=== PATIENT | female | born 1935 | race Caucasian/White ===

== ENCOUNTER 2018-11-04 17:14 | Observation (INO) ==
[2018-11-04] MEDS ORDERED: Sod Chloride 0.9% Inj 1,000 ML IV.SIG ONE (17:33)
--- NOTE | 2018-11-04 17:38 | ED ---
HPI General Chief Complaint: Seizure Stated Complaint: Seizure Time Seen by Provider: 11/04/18 17:24 Source: patient Mode of arrival: ambulatory Limitations: no limitations History of Present Illness HPI Narrative: Patient is a 83-year-old female with history of hypertension and hyperlipidemia, presents to the emergency room for evaluation of seizure. As per EMS, patient's reports that patient had a seizure episode while sitting down, reports that the episode lasted for about 10 minutes. Patient does not have history of seizures. Denies any trauma to the head or neck. Patient reports that she has no headache or dizziness, denies any vision changes. Denies any fever/chills. Patient reports that at this time, she just feels nauseous. Patient with no chest pain or shortness of breath, no other complaints. Patient did have incontinence of stool on route to the ER. EMS reported that patient has been postictal until she arrived to the ER Related Data Home Medications Medication Instructions Recorded Confirmed amlodipine 5 mg PO DAILY 11/04/18 11/04/18 atorvastatin 40 mg PO DAILY 11/04/18 11/04/18 calcium carbonate-vitamin D3 1 tab PO BID 11/04/18 11/04/18 [Calcium with Vitamin D] cetirizine 5 mg PO DAILY 11/04/18 11/04/18 cholecalciferol (vitamin D3) 2,500 unit PO DAILY 11/04/18 11/04/18 [Vitamin D3] dicyclomine 10 mg PO TID 11/04/18 11/04/18 hydrochlorothiazide 12.5 mg PO DAILY 11/04/18 11/04/18 metoprolol succinate 25 mg PO BID 11/04/18 11/04/18 multivitamin 1 tab PO DAILY 11/04/18 11/04/18 pantoprazole 40 mg PO DAILY 11/04/18 11/04/18 tizanidine [Zanaflex] 4 mg PO TID PRN 11/04/18 11/04/18 Allergies Allergy/AdvReac Type Severity Reaction Status Date / Time niacin Allergy Unknown Rash Verified 11/04/18 17:47 Review of Systems ROS: all other systems reviewed are negative PMFSH History History Provided By: Patient Medical History Medical History Hypercholesteremia (Acute) Hypertension (Acute) Social History Social History Substance History: No History of Abuse Smoking Status: Former smoker How Often Do You Have a Drink Containing Alcohol: Never Recent Travel in [place] within the Last 8 Weeks: No Recent Out of Country Travel within the Last 8 Weeks: No Exam Narrative Exam Narrative: GENERAL: Mild distress SKIN: Focused skin assessment warm/dry. HEAD: Atraumatic. Normocephalic. EYES: Pupils equal and round. No scleral icterus. No injection or drainage. ENT: No nasal bleeding or discharge. Mucous membranes pink and moist. NECK: Trachea midline. No JVD. CARDIOVASCULAR: Regular rate and rhythm. No murmur appreciated. RESPIRATORY: No accessory muscle use. Clear to auscultation. Breath sounds equal bilaterally. GASTROINTESTINAL: Abdomen soft, non-tender, nondistended. Hepatic and splenic margins not palpable. MUSCULOSKELETAL: No obvious deformities. No clubbing. No cyanosis. No edema. NEUROLOGICAL: Awake and alert. No obvious cranial nerve deficits. Motor grossly within normal limits. Normal speech. CN 2- 12 grossly intact with no neurological compromise PSYCHIATRIC: Appropriate mood and affect; insight and judgment normal. Course Initial Documented Vital Signs Temperature 97.7 F 11/04/18 17:32 Pulse Rate 77 11/04/18 17:32 Respiratory Rate 18 11/04/18 17:32 Blood Pressure 194/79 H 11/04/18 17:32 Pulse Oximetry 92 L 11/04/18 17:32 Last Documented Vital Signs Temperature 97.7 F 11/04/18 17:32 Pulse Rate 74 11/04/18 17:41 Respiratory Rate 18 11/04/18 17:41 Blood Pressure 153/67 H 11/04/18 17:41 Pulse Oximetry 96 11/04/18 17:41 Medical Decision Making [facility] Narrative Medical decision making narrative: During the course of the patients emergency department visit, the patients history, examination, and differential diagnosis were reviewed with the patient. The patient was placed on a traffic monitor specialist with oximetry and frequent blood pressure monitoring. The patient had an IV access obtained and blood work sent for analysis. The patient was initially provided IVF. CT of head ordered as patient has new onset seizures. The patients laboratory studies were reviewed Case reviewed with Dr. Guillermo who accepts pt to service for workup of new onse seizures Medical Screen Exam Complete: Yes Emergency Medical Condition: Yes Differential Diagnosis Differential Diagnosis: new onset seizure, intracranial mass, ich, electrolyte abnormality Medical Records Medical records reviewed: Yes I reviewed the patient's medical records. Lab Data Result diagrams: 11/04/18 17:38 11/04/18 17:38 Lab Results 11/04/18 11/04/18 11/04/18 Range/Units 17:38 17:38 17:38 WBC 7.7 (4.0-11.0) th/mm3 RBC 4.85 (4.00-5.30) mil/mm3 Hgb 14.2 (11.6-15.3) gm/dL Hct 41.8 (35.0-46.0) % MCV 86.3 (80.0-100.0) fL MCH 29.4 (27.0-34.0) pg MCHC 34.0 (32.0-36.0) % RDW 14.6 (11.6-17.2) % Plt Count 212 (150-450) th/mm3 MPV 8.7 (7.0-11.0) fL Neut % (Auto) 64.7 (16.0-70.0) % Lymph % (Auto) 25.3 (9.0-44.0) % Island % (Auto) 8.6 H (0.0-8.0) % Eos % (Auto) 1.0 (0.0-4.0) % Baso % (Auto) 0.4 (0.0-2.0) % Neut # (Auto) 5.0 (1.8-7.7) th/mm3 Lymph # (Auto) 2.0 (1.0-4.8) th/mm3 Island # (Auto) 0.7 (0.0-0.9) th/mm3 Eos # (Auto) 0.1 (0.0-0.4) th/mm3 Baso # (Auto) 0.0 (0.0-0.2) th/mm3 WBC Differential . Differential Comment Auto diff final Sodium 137 (136-145) meq/L Potassium 3.1 L (3.5-5.1) meq/L Chloride 104 (98-107) meq/L Carbon Dioxide 25.5 (21.0-32.0) meq/L Anion Gap 8 (5-15) meq/L BUN 25 H (7-18) mg/dL Creatinine 1.07 H (0.50-1.00) mg/dL Estimated GFR 49 L (>89) mL/min POC Glucose 131 H (68-110) mg/dl Random Glucose 130 H (74-106) mg/dL Calcium 8.8 (8.5-10.1) mg/dL Magnesium 1.6 (1.5-2.5) mg/dL Imaging Data Radiologist's impression: Head CT 11/04/18 17:33 CONCLUSION: No acute intracranial abnormality. . Discharge Plan Discharge Disposition Patient Disposition: ED Admit(ED Internal Use Only) Discharge Condition Condition: Stable Discharge Order Discharge Orders: ED Use Only Admit Order (Routine); Ordered 11/04/18 Ordered By: Roxi Aleman Discharge Details Diagnosis: New onset seizure Physicians Team ED Provider: Roxi Aleman Primary Care Provider: Xander Solis Rxs /Orders / Referrals /Forms Prescriptions: No Action multivitamin Tablet 1 tab PO DAILY RF: 0 atorvastatin 40 mg Tablet 40 mg PO DAILY RF: 0 cetirizine 5 mg Tablet 5 mg PO DAILY RF: 0 tizanidine [Zanaflex] 4 mg Tablet 4 mg PO TID PRN (Reason: Muscle Spasm) RF: 0 amlodipine 5 mg Tablet 5 mg PO DAILY RF: 0 pantoprazole 40 mg Tablet,Delayed Release (Dr/Ec) 40 mg PO DAILY RF: 0 hydrochlorothiazide 25 mg Tablet 12.5 mg PO DAILY RF: 0 metoprolol succinate 25 mg Tablet Extended Release 24 Hr 25 mg PO BID RF: 0 dicyclomine 10 mg Capsule 10 mg PO TID RF: 0 calcium carbonate-vitamin D3 [Calcium with Vitamin D] 600 mg(1,500mg) -400 unit Tablet 1 tab PO BID RF: 0 cholecalciferol (vitamin D3) [Vitamin D3] 5,000 unit Tablet 2,500 unit PO DAILY RF: 0 Discharge Interventions Interventions: Vital Signs Last Done: 11/04/18 17:41 Status ED Status: Pending Admission
--- NOTE | 2018-11-04 18:02 | CT ---
EXAM DATE: 11/04/2018 5:59 PM EST AGE/SEX: 83 years / Female INDICATIONS: Seizure; patient complains of vertigo now. CLINICAL DATA: This is the patient's initial encounter. Patient reports that signs and symptoms have been present for 1 day and indicates a pain score of 0/10. MEDICAL/SURGICAL HISTORY: Hypertension. None. RADIATION DOSE: 34.23 CTDI (mGy) COMPARISON: No prior exams available for comparison. TECHNIQUE: CT of the head without contrast. Using automated exposure control and adjustment of the mA and/or kV according to patient size, radiation dose was kept as low as reasonably achievable to ob tain optimal diagnostic quality images. DICOM format image data is available electronically for revi ew and comparison. FINDINGS: Cerebrum: The ventricles are normal for age. No evidence of midline shift, mass lesion, hemorrhage or acute infarction. No extraaxial fluid collections are seen. Posterior Fossa: The cerebellum and brainstem are intact. The 4th ventricle is midline. The cerebe llopontine angle is unremarkable. Extracranial: The visualized portion of the orbits is intact. Skull: The calvaria is intact. No evidence of skull fracture. CONCLUSION: No acute intracranial abnormality. . Electronically signed by: Kumar Rowe MD 11/04/2018 6:01 PM EST
[2018-11-04 18:05] LABS: Baso % (Auto) 0.4 % (0.0-2.0); Eos # (Auto) 0.1 th/mm3 (0.0-0.4); Hematocrit 41.8 % (35.0-46.0); Hemoglobin 14.2 gm/dL (11.6-15.3); Lymph % (Auto) 25.3 % (9.0-44.0); Mean Corpuscular Hemoglobin 29.4 pg (27.0-34.0); Mean Corpuscular Volume 86.3 fL (80.0-100.0); Mean Platelet Volume 8.7 fL (7.0-11.0); Mono # (Auto) 0.7 th/mm3 (0.0-0.9); Mono % (Auto) 8.6 % (0.0-8.0); Neut % (Auto) 64.7 % (16.0-70.0); Platelet Count 212 th/mm3 (150-450); Red Blood Count 4.85 mil/mm3 (4.00-5.30); Red Cell Distribution Width 14.6 % (11.6-17.2); White Blood Count 7.7 th/mm3 (4.0-11.0)
[2018-11-04 18:22] LABS: Calcium 8.8 mg/dL (8.5-10.1); Carbon Dioxide 25.5 meq/L (21.0-32.0); Magnesium 1.6 mg/dL (1.5-2.5); Potassium 3.1 meq/L (3.5-5.1)
[2018-11-04] MEDS ORDERED: Bisacodyl 10 MG Supp RECTAL PRN (19:16)
[2018-11-04] MEDS ORDERED: Acetaminophen 325 MG Tablet PO PRN (19:16)
--- NOTE | 2018-11-04 19:18 | P.HPIM ---
History of Present Illness Primary Care Physician: Xander Solis MD History of Present Illness: This is an 83-year-old female with a PMH of HTN and Hyperlipidemia was brought to the ER by EMS after seizure. Per at bedside, heard pt scream from the other room, then found her having mostly upper extremity shaking, episode lasted approx 10min, +fecal incontinence and post-ictal period. Currently back to baseline mental status. No recurrent episodes. Pt w/ h/o febrile seizures when she was 9yrs old, no seizure activity since, not on anticonvulsants. On arrival, BP 153/67, HR 74, O2 sat 96% on 2L NC, Afebrile. CBC unremarkable. K + 3.1. Creatinine 1.07. BUN 25. CT Head with no acute findings. - Diagnosis (1) New onset seizure (2) Hypokalemia (3) Dehydration Review of Systems PAST FAMILY HISTORY: Reviewed. No h/o DM or CAD All other systems reviewed negative except as stated in HPI PMFSH - History History Provided By: Patient - Medical History Medical History: Medical History (Last Reviewed 11/04/18 @ 17:50 by Roxi Moraes RN) Hypercholesteremia Hypertension - Surgical History Surgical History: Surgical History (Last Reviewed 11/04/18 @ 17:50 by Roxi Moraes RN) No history of previous surgery - Tobacco History Smoking Status: Former smoker - Alcohol History How Often Do You Have a Drink Containing Alcohol: Never - Substance Use History Substance History: No History of Abuse - Travel History Recent Travel in the [place] Within the Last 8 Weeks: No Recent Travel Out of the Country Within the Last 8 Weeks: No - Immunization History Tetanus Immunization: Never Vaccinated Medications and Allergies Active Medications: Active Medications Sodium Chloride (Ns Flush) 2 ml IV.FLUSH PRN PRN PRN Reason: FLUSH AFTER USING IV ACCESS Last Admin: 11/04/18 17:49 Dose: 2 ml Allergies Allergy/AdvReac Type Severity Reaction Status Date / Time niacin Allergy Unknown Rash Verified 11/04/18 17:47 Home Medications Medication Instructions Recorded Confirmed Type amlodipine 5 mg PO DAILY 11/04/18 11/04/18 History atorvastatin 40 mg PO DAILY 11/04/18 11/04/18 History calcium carbonate-vitamin D3 1 tab PO BID 11/04/18 11/04/18 History [Calcium with Vitamin D] cetirizine 5 mg PO DAILY 11/04/18 11/04/18 History cholecalciferol (vitamin D3) 2,500 unit PO DAILY 11/04/18 11/04/18 History [Vitamin D3] dicyclomine 10 mg PO TID 11/04/18 11/04/18 History hydrochlorothiazide 12.5 mg PO DAILY 11/04/18 11/04/18 History metoprolol succinate 25 mg PO BID 11/04/18 11/04/18 History multivitamin 1 tab PO DAILY 11/04/18 11/04/18 History pantoprazole 40 mg PO DAILY 11/04/18 11/04/18 History tizanidine [Zanaflex] 4 mg PO TID PRN 11/04/18 11/04/18 History Exam Vital signs: Vital Signs 11/04/18 17:32 11/04/18 17:35 11/04/18 17:37 Temperature 97.7 F Pulse Rate 77 81 Respiratory Rate 18 Blood Pressure 194/79 H Pulse Oximetry 92 L 92 L 96 11/04/18 17:41 Temperature Pulse Rate 74 Respiratory Rate 18 Blood Pressure 153/67 H Pulse Oximetry 96 Intake & Output 11/04/18 11/04/18 11/05/18 06:59 18:59 06:59 Intake Total 1000 / 1000 Balance 1000 / 1000 Weight 160 kg Intake: IV 1000 / 1000 NS Inj 1,000 ML @ Wide Open IV. 1000 / 1000 SIG BOLUS ONE Rx#:[id number] Narrative: PE: GENERAL: Extremely pleasant elderly white female in no acute distress. at bedside. SKIN: Focused skin assessment warm and dry. HEENT: PERRLA, EOMI. No scleral icterus or conjunctival pallor. No lid lag or facial droop. CARDIOVASCULAR: Regular rate and rhythm. No obvious murmurs to auscultation. No chest tenderness to palpation. RESPIRATORY: No obvious rhonchi or wheezing. Clear to auscultation. Breath sounds equal bilaterally. GASTROINTESTINAL: Abdomen soft, non-tender, nondistended. BS normal. MUSCULOSKELETAL: Extremities without clubbing, cyanosis, or edema. No obvious deformities. NEUROLOGICAL: Awake, alert and oriented x4. No focal neurologic deficits. Moving both upper and lower extremities spontaneously. PSYCHIATRIC: Appropriate mood and affect. Insight and judgment normal. Results - Labs CBC & Chem 7: 11/04/18 17:38 11/04/18 17:38 Labs: Short CBC 11/04/18 Range/Units 17:38 WBC 7.7 (4.0-11.0) th/mm3 Hgb 14.2 (11.6-15.3) gm/dL Hct 41.8 (35.0-46.0) % Plt Count 212 (150-450) th/mm3 BMP 11/04/18 17:38 Sodium 137 Potassium 3.1 L Chloride 104 Carbon Dioxide 25.5 BUN 25 H Creatinine 1.07 H Calcium 8.8 - Imaging Impressions Head CT 11/04/18 17:33 CONCLUSION: No acute intracranial abnormality. . Caprini VTE Risk Assessment Caprini VTE Risk Assessment: No/Low Risk (score <= 1) Caprini Risk Assessment Model: Point Value = 1 Point Value = 2 Point Value = 3 Point Value = 5 Age 41-60 Minor surgery BMI > 25 kg/m2 Swollen legs Varicose veins or History of unexplained or recurrent spontaneous Oral contraceptives or hormone replacement Sepsis (< 1 month) Serious lung disease, including pneumonia (< 1 month) Abnormal pulmonary function Acute myocardial infarction Congestive heart failure (< 1 month) History of inflammatory bowel disease Medical patient at bed rest Age 61-74 Arthroscopic surgery Major open surgery (> 45 min) Laparoscopic surgery (> 45 min) Malignancy Confined to bed (> 72 hours) Immobilizing plaster cast Central venous access Age >= 75 History of VTE Family history of VTE Factor V Leiden Prothrombin [id number] Lupus anticoagulant Anticardiolipin antibodies Elevated serum homocysteine Heparin-induced thrombocytopenia Other congenital or acquired thrombophilia Stroke (< 1 month) Elective arthroplasty Hip, pelvis, or leg fracture Acute spinal cord injury (< 1 month) Prophylaxis Regimen: Total Risk Factor Score Risk Level Prophylaxis Regimen 0-1 Low Early ambulation 2 Moderate Order ONE of the following: *Sequential Compression Device (SCD) *Heparin 5000 units SQ BID 3-4 Higher Order ONE of the following medications: *Heparin 5000 units SQ TID *Enoxaparin/Lovenox 40 mg SQ daily (WT < 150 kg, CrCl > 30 mL/min) *Enoxaparin/Lovenox 30 mg SQ daily (WT < 150 kg, CrCl > 10-29 mL/min) *Enoxaparin/Lovenox 30 mg SQ BID (WT < 150 kg, CrCl > 30 mL/min) AND/OR *Sequential Compression Device (SCD) 5 or more Highest Order ONE of the following medications: *Heparin 5000 units SQ TID (Preferred with Epidurals) *Enoxaparin/Lovenox 40 mg SQ daily (WT < 150 kg, CrCl > 30 mL/min) *Enoxaparin/Lovenox 30 mg SQ daily (WT < 150 kg, CrCl > 10-29 mL/min) *Enoxaparin/Lovenox 30 mg SQ BID (WT < 150 kg, CrCl > 30 mL/min) AND *Sequential Compression Device (SCD) Assessment and Plan - Assessment (1) New onset seizure Code(s): R56.9 - Unspecified convulsions Status: Acute (2) Hypokalemia Code(s): E87.6 - Hypokalemia Status: Acute (3) Dehydration Code(s): E86.0 - Dehydration Status: Acute - Plan A/P: 1. Seizure: New Onset. h/o febrile seizure as a child, no recurrence, not on anticonvulsants. +seizure activity x10 min, +fecal incontinence, +post-ictal period, now back to baseline. CT Head w/ no acute findings. Check MRI to eval for possible seizure focus. Check EEG to eval for seizure activity. Seizure Precautions. Ativan prn. Consult Neurology for further recommendations. Pt instructed not to drive, operate machinery, climb ladders or swim for 6mo until seizure free. 2. Dehydration: BUN 25, creatinine 1.07, no previous labs for comparison, IVF for hydration, check U/a to eval for underling UTI, monitor I/O, repeat labs in am 3. Hypokalemia: K+ 3.1, s/p replacement in ER, will recheck in am and replace as needed. 4. DVT Prophylaxis: SCD/Teds 5. Social work for d/c planning as needed. 6. Case discussed w/ ER physician at length, labs/records/imaging reviewed by me.
--- NOTE | 2018-11-04 20:39 | MR ---
EXAM DATE: 11/04/2018 8:34 PM EST AGE/SEX: 83 years / Female INDICATIONS: Seizures. CLINICAL DATA: This is the patient's initial encounter. Patient reports that signs and symptoms have been present for 1 day and indicates a pain score of 0/10. MEDICAL/SURGICAL HISTORY: Hypertension. GERD, Gastric Ulcer, Hiatal Hernia . Cataract COMPARISON: [facility] [place], CT HEAD W/O CONTRAST, 11/04/2018. . TECHNIQUE: Multiplanar, multisequence examination of the brain was performed without contrast. FINDINGS: Cerebrum: The ventricles are normal for age. No evidence of midline shift, mass lesion, hemorrhage or acute infarction. No extraaxial fluid collections are seen. The pituitary gland and suprasellar cistern are normal in configuration. White Matter: Mild, chronic and symmetric FLAIR signal abnormality seen in the bilateral periventric ular white matter. Posterior Fossa: The cerebellum and brainstem are intact. The 4th ventricle is midline. The cerebel lopontine angle is unremarkable. The cerebellar tonsils are normal in position. Diffusion Imaging: No focal areas of restricted diffusion are seen. No evidence of acute infarction . Extracranial: The visualized portions of the orbits and paranasal sinuses are unremarkable. CONCLUSION: 1. No bleed, acute infarct or other acute intracranial abnormality demonstrated. 2. Mild chronic white matter changes. Electronically signed by: Kumar Rowe MD 11/04/2018 8:38 PM EST
[2018-11-04] MEDS: Sod Chloride 0.9% Inj 1,000 ML IV.CONT SCH (21:22)
[2018-11-04] MEDS: Senna/Docusate Sodium 8.6/50 MG Tablet PO SCH (21:24)
[2018-11-04 22:43] LABS: Bacteria,Urine Occasional /hpf; Bilirubin,Urine Negative (Negative); Clarity,Urine Clear (Clear); Color,Urine Straw (Yellw/Straw); Glucose,Urine (UA) Negative (Negative); Leukocyte Esterase,Urine Trace (Negative); Mucus,Urine Few /lpf (Occasional); Nitrite,Urine Negative (Negative); Specific Gravity,Urine 1.008 (1.002-1.035); Squamous Epithelial Cell,Urine 1 /hpf (0-5)
[2018-11-05 06:15] LABS: Baso % (Auto) 0.2 % (0.0-2.0); Eos # (Auto) 0.1 th/mm3 (0.0-0.4); Eos % (Auto) 0.7 % (0.0-4.0); Hematocrit 38.1 % (35.0-46.0); Lymph # (Auto) 1.4 th/mm3 (1.0-4.8); Lymph % (Auto) 17.6 % (9.0-44.0); Mean Corpuscular HGB Conc 34.1 % (32.0-36.0); Mean Corpuscular Hemoglobin 29.5 pg (27.0-34.0); Mean Corpuscular Volume 86.4 fL (80.0-100.0); Mono % (Auto) 11.7 % (0.0-8.0); Neut # (Auto) 5.7 th/mm3 (1.8-7.7); Neut % (Auto) 69.8 % (16.0-70.0); Platelet Count 201 th/mm3 (150-450); Red Blood Count 4.41 mil/mm3 (4.00-5.30); Red Cell Distribution Width 14.5 % (11.6-17.2); White Blood Count 8.1 th/mm3 (4.0-11.0)
[2018-11-05 06:43] LABS: Anion Gap 6 meq/L (5-15); Aspartate Aminotransferase 19 U/L (15-37); Blood Urea Nitrogen 15 mg/dL (7-18); Calcium 8.4 mg/dL (8.5-10.1); Carbon Dioxide 26.6 meq/L (21.0-32.0); Chloride 110 meq/L (98-107); Glomerular Filtration Rate 72 mL/min (>89); Glucose,Random 93 mg/dL (74-106); Potassium 3.2 meq/L (3.5-5.1); Sodium 143 meq/L (136-145)
[2018-11-05 06:44] LABS: Alanine Aminotransferase 19 U/L (10-53)
[2018-11-05 06:46] LABS: Alkaline Phosphatase 54 U/L (45-117); Total Protein 6.8 g/dL (6.4-8.2)
[2018-11-05] MEDS: Sod Chloride 0.9% Inj 1,000 ML IV.CONT SCH (07:08)
[2018-11-05] MEDS ORDERED: Potassium Chlor 20 mEq Premix 20 MEQ/100 ML PIGGYBACK IV.SIG ONE (08:00)
[2018-11-05 08:47] VITALS: PULSE 75; RESP 20
[2018-11-05] MEDS ORDERED: Magnesium Sulfate Inj 2 GM in Sodium Chlor 0.9% Inj 96 ML IV.SIG ONE (09:00)
[2018-11-05] MEDS: Senna/Docusate Sodium 8.6/50 MG Tablet PO SCH (10:00)
--- NOTE | 2018-11-05 12:27 | P.PNIM ---
Subjective Interval history: Follow-up visit HTN, HLD, new onset seizure. Patient seen and examined today. Reports she has been doing well. States no episode of seizures overnight. States that she feels a lot better. States that she spoke with a neurologist earlier and wanted her to get the EEG and if it is normal she is able to go home follow-up in their office. Denies pain and discomfort. Denies SOB/ dyspnea. Denies chest pain, palpitations, headaches, dizziness. Denies fevers, chills, n/v/d. Denies hematuria, dysuria. Physical Exam Vital signs: Vital Signs 11/04/18 17:32 11/04/18 17:35 11/04/18 17:37 Temperature 97.7 F Pulse Rate 77 81 Respiratory Rate 18 Blood Pressure 194/79 H Pulse Oximetry 92 L 92 L 96 11/04/18 17:41 11/04/18 21:02 11/04/18 23:58 Temperature 98.1 F 97.7 F Pulse Rate 74 73 73 Respiratory Rate 18 18 18 Blood Pressure 153/67 H 143/67 H 124/58 L Pulse Oximetry 96 95 97 11/05/18 04:00 11/05/18 08:00 Temperature 98.2 F 98.6 F Pulse Rate 67 75 Respiratory Rate 18 20 Blood Pressure 114/56 L 130/63 Pulse Oximetry 95 98 Intake & Output 11/04/18 11/05/18 11/05/18 18:59 06:59 18:59 Intake Total 1000 / 1000 1000 / 1000 Balance 1000 / 1000 1000 / 1000 Weight 160 kg 82.6 kg Intake: IV 1000 / 1000 1000 / 1000 NS Inj 1,000 ML @ 100 mls/hr IV 1000 / 1000 .CONT .Q10H ODELL Rx#:[id number] NS Inj 1,000 ML @ Wide Open IV. 1000 / 1000 SIG BOLUS ONE Rx#:[id number] Other: # Voids 1 5 Date of Last Bowel Movement 11/04/18 Weight On Admission 82.7 kg Narrative: GENERAL: Extremely pleasant elderly white female in no acute distress. SKIN:Warm and dry. HEENT: PERRLA, EOMI. No scleral icterus or conjunctival pallor. No lid lag or facial droop. CARDIOVASCULAR: Regular rate and rhythm. No obvious murmurs to auscultation. No chest tenderness to palpation. RESPIRATORY: No obvious rhonchi or wheezing. Clear to auscultation. Breath sounds equal bilaterally. GASTROINTESTINAL: Abdomen soft, non-tender, nondistended. BS normal. MUSCULOSKELETAL: Extremities without clubbing, cyanosis, or edema. No obvious deformities. NEUROLOGICAL: Awake, alert and oriented x4. No focal neurologic deficits. Moving both upper and lower extremities spontaneously. PSYCHIATRIC: Appropriate mood and affect. Insight and judgment normal. Results - Labs CBC & Chem 7: 11/05/18 05:03 11/05/18 05:03 Laboratory Results - last 24 hr 11/04/18 11/04/18 11/04/18 17:38 17:38 17:38 WBC 7.7 RBC 4.85 Hgb 14.2 Hct 41.8 MCV 86.3 MCH 29.4 MCHC 34.0 RDW 14.6 Plt Count 212 MPV 8.7 Neut % (Auto) 64.7 Lymph % (Auto) 25.3 Bond % (Auto) 8.6 H Eos % (Auto) 1.0 Baso % (Auto) 0.4 Neut # (Auto) 5.0 Lymph # (Auto) 2.0 Bond # (Auto) 0.7 Eos # (Auto) 0.1 Baso # (Auto) 0.0 WBC Differential . Differential Comment Auto diff final Sodium 137 Potassium 3.1 L Chloride 104 Carbon Dioxide 25.5 Anion Gap 8 BUN 25 H Creatinine 1.07 H Estimated GFR 49 L POC Glucose 131 H Random Glucose 130 H Calcium 8.8 Magnesium 1.6 Total Bilirubin AST ALT Alkaline Phosphatase Total Protein Albumin Urine Color Urine Clarity Urine pH Ur Specific [place] Urine Protein Urine Glucose (UA) Urine Ketones Urine Occult Blood Urine Nitrate Urine Bilirubin Urine Urobilinogen Ur Leukocyte Esterase Urine RBC Urine WBC Ur Squamous Epith Cells Urine Bacteria Urine Mucus Micro UA Comment Ur Microscopic Review Urine Culture Comments 11/04/18 11/05/18 11/05/18 21:50 05:03 05:03 WBC 8.1 RBC 4.41 Hgb 13.0 Hct 38.1 MCV 86.4 MCH 29.5 MCHC 34.1 RDW 14.5 Plt Count 201 MPV 9.0 Neut % (Auto) 69.8 Lymph % (Auto) 17.6 Bond % (Auto) 11.7 H Eos % (Auto) 0.7 Baso % (Auto) 0.2 Neut # (Auto) 5.7 Lymph # (Auto) 1.4 Bond # (Auto) 1.0 H Eos # (Auto) 0.1 Baso # (Auto) 0.0 WBC Differential . Differential Comment Auto diff final Sodium 143 Potassium 3.2 L Chloride 110 H Carbon Dioxide 26.6 Anion Gap 6 BUN 15 Creatinine 0.77 Estimated GFR 72 L POC Glucose Random Glucose 93 Calcium 8.4 L Magnesium Total Bilirubin 0.3 AST 19 ALT 19 Alkaline Phosphatase 54 Total Protein 6.8 Albumin 3.0 L Urine Color Straw Urine Clarity Clear Urine pH 5.0 Ur Specific [place] 1.008 Urine Protein Negative Urine Glucose (UA) Negative Urine Ketones Negative Urine Occult Blood Small H Urine Nitrate Negative Urine Bilirubin Negative Urine Urobilinogen Less than 2 Ur Leukocyte Esterase Trace H Urine RBC 1 Urine WBC 1 Ur Squamous Epith Cells 1 Urine Bacteria Occasional H Urine Mucus Few H Micro UA Comment Culture not ind Ur Microscopic Review Not Reportable Urine Culture Comments Culture not ind - Imaging Impressions Head MRI 11/04/18 00:00 CONCLUSION: 1. No bleed, acute infarct or other acute intracranial abnormality demonstrated. 2. Mild chronic white matter changes. Head CT 11/04/18 17:33 CONCLUSION: No acute intracranial abnormality. . Assessment and Plan - Assessment (1) New onset seizure Code(s): R56.9 - Unspecified convulsions Status: Acute (2) Hypokalemia Code(s): E87.6 - Hypokalemia Status: Acute (3) Dehydration Code(s): E86.0 - Dehydration Status: Acute - Plan 83-year-old female with a PMH of HTN and Hyperlipidemia was brought to the ER by EMS after seizure. New onset seizure -history of febrile seizure as a child, no recurrence, not on any anticonvulsants -Reported seizure activity about 10 minutes, with fecal incontinence and postictal. -CT of the head No acute intracranial abnormality. -MRI of the brain showed No bleed, acute infarct or other acute intracranial abnormality demonstrated. Mild chronic white matter changes. -Patient back to baseline. Pt not to drive, operate machinery, climb ladders or swim for 6mo until seizure free. -No reported seizures overnight. -Ativan PRN. -Neurology consulted appreciate recommendations. -EEG pending. If EEG is within normal patient may go home follow-up with neurology in the outpatient and PCP. HTN HLD -Restart home medications -Monitor BP trend Hypokalemia -Potassium replacements. Mild dehydration -IV fluids given -Improved DVT prop SCDs/teds CODE STATUS full code Discussed with patient, nursing Discharge patient to home Condition on discharge: Improved Cardiac diet as tolerated Activity: Pt instructed not to drive, operate machinery, climb ladders or swim for 6mo until seizure free. Rx written: Resume all home medications Follow-up with primary care physician, Dr. Gan neurology Discharge Planning: Plan to discharge home if EEG is within normal.
[2018-11-05] MEDS ORDERED: amLODIPine 5 MG Tablet PO SCH (12:45)
[2018-11-05] MEDS ORDERED: Dicyclomine 10 MG Capsule PO SCH (13:00)
[2018-11-05 13:04] VITALS: BP 122/68; TEMP 98.2; O2SAT 93
--- NOTE | 2018-11-05 13:45 | MB ---
cc: Rinku Gan MD, PhD DATE: 11/05/2018 REASON FOR CONSULTATION: Seizure. HISTORY OF PRESENT ILLNESS: Ms. Duff is an 83-year-old female who has a history of hypertension, hyperlipidemia. She came to the ER due to new onset seizure. Her found the patient screaming in the other room at home and found her having upper extremity shaking. She had lost consciousness lasting 10 minutes. She did have fecal incontinence, afterwards was postictally somnolent, confused. She is back to baseline now. She has a history of febrile seizures when she was 9 years old. No other seizure history. PAST MEDICAL HISTORY: Hyperlipidemia, hypertension. CURRENT MEDICATIONS: 1. Milk of magnesia. 2. Lipitor. 3. Lactulose. 4. Toprol-XL. 5. Zofran. 6. Protonix. 7. Colace. 8. Senokot. SOCIAL HISTORY: Denies alcohol abuse or tobacco abuse. PHYSICAL EXAMINATION: VITAL SIGNS: Blood pressure is 124/58, pulse 73, respirations 18, temperature 97 degrees. NEUROLOGIC: Higher cortical functions normal. Cranial nerves intact. Motor exam is normal. No focal deficits. Reflexes are symmetric. IMAGING STUDIES: CT brain is unremarkable. MRI of the brain normal for age. EEG pending. LABORATORY DATA: White count 7700, hemoglobin 14.2, hematocrit 41.8%, platelet count 212,000. Sodium is 137, potassium 3.1, chloride 104, CO2 26, BUN is 25, creatinine 1.07, GFR 49, glucose 130, calcium 8.8. IMPRESSION: Generalized tonic-clonic seizure. RECOMMENDATIONS: I would not recommend any anticonvulsant therapy unless the EEG were to show epileptiform activity. If EEG is normal, the patient is safe for discharge home, should not drive for at least 6 months being seizure free. Please schedule a followup in my office in 3 weeks. Rinku Gan MD, PhD SUKI/ct , 12:31 PM , 12:36 PM
--- NOTE | 2018-11-05 20:21 | MG ---
cc: Rinku Gan MD, PhD DATE OF STUDY: 11/05/2018 TEST NUMBER: [id number] TECHNIQUE: A 17-channel EEG. DESCRIPTION: The background rhythm reveals symmetrical alpha activity with a frequency of 8-10 Hz. Amplitude is about 20-40 microvolts. There is some slowing in the theta range during drowsiness. There is fairly prominent muscle artifact throughout the tracing. There are no epileptiform discharges and there are no lateralizing features. Hyperventilation was not done; however, photic stimulation was done in a stepwise fashion with a normal driving response. INTERPRETATION: Normal electroencephalogram. Rinku Gan MD, PhD SUKI/lupe , 06:06 PM , 06:12 PM
[2018-11-05] MEDS ORDERED: Calcium/Vitamin D 250/125 MG Tablet PO SCH (21:00)
--- NOTE | 2018-11-05 21:17 | ECG ---
Date Performed: 11/04/2018 Time Performed: 17:42:48 PTAGE: 83 years EKG: Sinus rhythm WITH OCCASIONAL VENTRICULAR PREMATURE COMPLEXES NONSPECIFIC T-WAVE ABNORMALITY Since the previous tr acing, no significant change noted BORDERLINE ECG PREVIOUS TRACING : 04/21/2013 20.29 DOCTOR: Charlie Maciel Interpretating Date/Time 11/05/2018 21:15:35
[2018-11-06] MEDS ORDERED: hydroCHLOROthiazide 25 MG Tablet PO SCH (09:00)
== END 2018-11-05 15:56 | disposition home or self-care (01) ==
LOC: NEDA 17:14 → NEPC 17:14 → N05 20:15
PROVIDERS: ADMIT Hospitalist; ATTEND Hospitalist